=== PATIENT | female | born 1990 | race American Indian/Alaskan Native ===

== ENCOUNTER 2017-06-20 14:01 | Outpatient (CLI) | payer MEDICAID, OTHER ==
[2017-06-20 15:23] LABS: Basophils % (Auto) 0.2 % (0.0-1.8); Eosinophils % (Auto) 0.5 % (0.0-4.3); Hematocrit 28.9 % (30.3-42.9); Hemoglobin 9.3 gm/dl (10.1-14.3); Mean Corpuscular HGB Conc 32 % (30-34); Mean Corpuscular Volume 76 fl (79-97); Monocytes # (Auto) 0.7 K/mm3 (0.0-0.8); Monocytes % (Auto) 10.1 % (0.0-7.3); Platelet Count 184 K/mm3 (140-440); Red Blood Count 3.78 M/mm3 (3.65-5.03); Red Cell Distribution Width 16.7 % (13.2-15.2)
[2017-06-20 15:41] LABS: Alanine Aminotransferase 14 units/L (7-56); Albumin 3.2 g/dL (3.9-5); BUN/Creatinine Ratio 13; Blood Urea Nitrogen 4 mg/dL (7-17); Calcium 8.6 mg/dL (8.4-10.2); Hemolysis Index 1
[2017-06-20 15:46] LABS: Bilirubin,Direct < 0.2 mg/dL (0-0.2)
[2017-06-20] MEDS ORDERED: LACTATED RINGERS 500 ML IV ONE (15:49)
[2017-06-20 15:54] VITALS: BP 98/54
[2017-06-20 16:04] LABS: Mean Corpuscular Hemoglobin 25 pg (28-32)
[2017-06-20 16:50] LABS: Bilirubin,Urine NEG (Negative); Blood,Urine NEG (Negative); Color,Urine Yellow (Yellow); Mucus,Urine FEW /HPF; Protein,Urine <15 mg/dL mg/dL (Negative); RBC,Urine < 1.0 /HPF (0.0-6.0); Urobilinogen,Urine < 2.0 mg/dL (<2.0)
--- NOTE | 2017-06-20 17:21 | Event Note ---
Date: 06/20/17 (GD disease) Reviewed GB US results with . Reviewed diet and use of antacids. Pt and SO made aware of ultrasound results. GB disease in . Reviewed with pt diet and use of antacids. Surgical intervention after delivery if sx and pain can be managed for a few more weeks. Even possible IOL if indicated. Pt has a scheduled PN visit in the office. All questions answered. Pt d/c with instructions.
--- NOTE | 2017-06-21 00:19 | Ultrasound Report ---
FINAL REPORT PROCEDURE: US ABDOMEN LIMITED TECHNIQUE: Real-time sonography in multiple planes of the gallbladder fossa and CBD with imaging of the adjacent liver, pancreas, and right kidney was performed with image documentation. CPT 02283 HISTORY: IUP RUQ pain COMPARISON: None. FINDINGS: Liver: Normal size and echotexture with no evidence of cystic or solid mass lesion. Gallbladder: There sludge in the gallbladder. There are no stones. There is gallbladder wall thickening at 3.6 millimeters. There is no pericholecystic fluid.. Intrahepatic bile ducts: Normal . Extrahepatic bile ducts: Normal . Pancreas: Normal as visualized with suboptimal depiction of the pancreatic tail. Right kidney: Normal echotexture. No focal renal mass, calculus, or hydronephrosis. Other: No free fluid. IMPRESSION: There is mild gallbladder wall thickening which is nonspecific. There is gallbladder sludge. There is no definite evidence of acute cholecystitis. There are no gallstones. There is no biliary ductal dilatation.
== END 2017-06-20 17:33 | disposition home or self-care (01) ==
LOC: TRG 14:01 → LD 14:35 → TRG 17:33
PROVIDERS: ATTEND Obstetrics & Gynecology
DX: O99.613 Diseases of the digestive system complicating pregnancy, third trimester (principal); K82.9 Disease of gallbladder, unspecified; O47.03 False labor before 37 completed weeks of gestation, third trimester; Z3A.36 36 weeks gestation of pregnancy
CPT/HCPCS: 36415; 59025; 76705; 80053; 80074; 81001; 85025

== ENCOUNTER 2017-06-25 10:43 | Outpatient (CLI) | payer OTHER ==
[2017-06-25 10:56] VITALS: BP 106/57
--- NOTE | 2017-06-25 14:36 | Ultrasound Report ---
ULTRASOUND BIOPHYSICAL PROFILE: History: Decreased movement Technique: Transabdominal ultrasound with Doppler interrogation. 2 - breathing movements 2 - movements 2 - posture and tone 2 - Qualitative amniotic fluid volume 8 - TOTAL SCORE OF POSSIBLE 8 Heart Rate (bpm) 135
--- NOTE | 2017-06-25 14:36 | Ultrasound Report ---
ULTRASOUND OB LIMITED History: Decreased movement Technique: Transabdominal ultrasound with Doppler interrogation. Gestation: Single Position: Cephalic Amniotic Fluid: Normal TON = 16.6 cm Heart Rate: 135 BPM
== END 2017-06-25 12:35 | disposition home or self-care (01) ==
LOC: TRG 10:43
PROVIDERS: ATTEND Obstetrics & Gynecology
DX: O36.8130 Decreased fetal movements, third trimester, not applicable or unspecified (principal); O47.1 False labor at or after 37 completed weeks of gestation; Z3A.38 38 weeks gestation of pregnancy
CPT/HCPCS: 59025; 76815; 76819

== ENCOUNTER 2017-07-03 21:04 | Inpatient (IN) | payer OTHER ==
--- NOTE | 2017-07-03 21:56 | History and Physical Report ---
History of Present Illness Date of examination: 07/03/17 Date of admission: 07/03/17 Chief complaint: contractions, bloody discharge History of present illness: Pt presents c/o contractions and vaginal bloody discharge. + fm. cx 5/80/0 pt was seen in the office yesterday and cx was 3.5/60/-2 Menstrual History Menses every: 28 days Duration: 5 LMP: 09/2016 LMP reliability: month known LMP character: normal test type: urine test Date: 11/22/2016 BC at conception: none Planned ? no LMP: 08/14/2015 Past History : 5 Term Births: 3 Living Children: 3 Para: 3 Aborta: 1 Elect. Ab: 1 # 1 Delivery date: 2004 Weeks Gestation: 12 labor: no Delivery type: EAB Delivery location: [place] Comments: Hospitalized x 4 days # 2 Delivery date: 2005 Weeks Gestation: 38 Delivery type: Hours of labor: 4 Delivery location: [place] Sex: Male weight: 6#5oz Comments: no complications # 3 Delivery date: 2007 Weeks Gestation: 38 labor: no Delivery type: Hours of labor: 2 Anesthesia type: epidural Delivery location: [place] Sex: Male weight: 6#7oz Comments: no complications # 4 Delivery date: 08/16/2015 Weeks Gestation: 39 Delivery type: Vaginal Delivery location: [facility] weight: 7.75 Past Medical History Abnormal PAP: negative OSMAN Exposure: negative Infertility: negative Uterine Anomaly: negative Uterine Surgery (not C/S): negative Other Gynecologic Problems: negative Social Hx: Pt is no e/t/d occ etoh(social), + tobacco (hooka), no drugs Infection History Hx of STD: HPV Partner hx. of genital herpes: no Rash, Viral, or Febrile illness since last LMP? no Varicella/Chicken Pox Status: Previous Disease Genetic History Congenital Heart Defect: Mom: no Ene Disease: Mom: no Thalassemia Mom: no Neural Tube Defect Mom: no Down's Syndrome Mom: no Kurtis-Sachs Mom: no Sickle Cell Disease/Trait Mom: no Hemophilia Mom: no Muscular Dystrophy Mom: no Cystic Fibrosis Mom: no Baxter Chorea Mom: no Mental Retardation Mom: no Fragile X Mom: no Other Genetic/Chromosomal Disorder Mom: no Child w/other defect Mom: no Enviromental Exposures Xray Exposure: no Medication, drug, or alcohol use since LMP: no Chemical/Other Exposure: no Exposure to Cat Liter: no Hx of Parvovirus (Fifth Disease): no Active Medications (reviewed today): None Current Allergies (reviewed today): AMOXICILLIN (AMOXICILLIN TABS) (Critical) * PENICILLIN (Critical) * SULFUR (Critical) * VANCOMYCIN (Critical) Past History Past Medical History: no pertinent history Past Surgical History: no surgical history - Obstetrical History Expected Date of Delivery: 07/07/17 Actual Gestation: 39 Week(s) 3 Day(s) : 5 Para: 3 Number of Living Children: 3 Medications and Allergies Allergies Allergy/AdvReac Type Severity Reaction Status Date / Time amoxicillin Allergy Anaphylaxis Verified 08/16/15 08:16 Penicillins Allergy Anaphylaxis Verified 08/16/15 08:16 Sulfa (Sulfonamide Allergy Anaphylaxis Verified 08/16/15 08:16 Antibiotics) vancomycin Allergy Anaphylaxis Verified 08/16/15 08:16 Home Medications Medication Instructions Recorded Confirmed Last Taken Type Vit Calc,Iron,Folic 1 tab PO DAILY 08/16/15 06/25/17 2 Days Ago History [ Vitamins] ~06/23/17 Review of Systems All systems: negative - Vital Signs Vital signs: Vital Signs Pulse BP 100 H 103/59 07/03/17 21:22 07/03/17 21:22 Temp Pulse Resp BP Pulse Ox 97 H 103/59 100 07/03/17 21:55 07/03/17 21:22 07/03/17 21:55 - Physical Exam Cardiovascular: Normal S1, Normal S2 Lungs: Positive: Clear to auscultation, Normal air movement Abdomen: Positive: normal appearance, soft. Negative: distention, tenderness, guarding Genitourinary (Female): Positive: normal external genitalia, normal perenium. Negative: perineal/vulvar lesions Vagina: Positive: normal moisture - Obstetrical FHR: category 1 Cervical Dilatation: 5 Cervical Effacement Percentage: 80 station: 0 Uterine Contraction Pattern: Irregular Uterine Tone Measurement Phase: Resting Uterine Contraction Intensity: Moderate Results All other labs normal. Assessment and Plan - Patient Problems (1) 39 weeks gestation of Current Visit: Yes Status: Acute (2) Active labor at term Current Visit: No Status: Acute Plan to address problem: -admit -add pitocin if no cervical change -AROM if needed -anticpate
[2017-07-03] MEDS ORDERED: ePHEDrine SULFATE IV PRN (21:57)
[2017-07-03] MEDS ORDERED: ZOFRAN IV PRN (21:57)
[2017-07-03] MEDS ORDERED: MINERAL OIL PO PRN (21:57)
[2017-07-03] MEDS ORDERED: XYLOCAINE 2% INFILTRATI ONE (21:57)
[2017-07-03] MEDS ORDERED: BRETHINE SUB-Q PRN (21:57)
[2017-07-03] MEDS ORDERED: BRETHINE IVP PRN (21:57)
[2017-07-03] MEDS ORDERED: SUBLIMAZE IV PRN (21:57)
[2017-07-03] MEDS ORDERED: PITOCin/NS 30 UNIT/500ML 30 UNITS/500 ML BAG IV SCH ×2 (22:00)
[2017-07-03] MEDS: NORMOSOL-R PH 7.4 1,000 ML IV SCH ×3 (22:55→23:56)
[2017-07-03 22:58] LABS: Hematocrit 31.8 % (30.3-42.9); Hemoglobin 10.4 gm/dl (10.1-14.3); Mean Corpuscular HGB Conc 33 % (30-34); Mean Corpuscular Volume 74 fl (79-97); Platelet Count 231 K/mm3 (140-440); Red Blood Count 4.31 M/mm3 (3.65-5.03); Red Cell Distribution Width 17.4 % (13.2-15.2)
[2017-07-03 23:27] LABS: Mean Corpuscular Hemoglobin 24 pg (28-32)
[2017-07-04] MEDS ORDERED: NARCAN 2 MG/2 ML IV PRN (00:13)
--- NOTE | 2017-07-04 00:16 | Anesthesia Consultation ---
Anesthesia Consult and Med Hx Date of service: 07/04/17 - Airway Anesthetic Teeth Evaluation: Good ROM Head & Neck: Adequate Mental/Hyoid Distance: Adequate Intubation Access Assessment: Probably Good - Pre-Operative Health Status ASA Pre-Surgery Classification: ASA2, Emergency Proposed Anesthetic Plan: Epidural, Spinal - Pulmonary Hx Asthma: No COPD: No Hx Pneumonia: No - Cardiovascular System Hx Hypertension: No - Central Nervous System Hx Seizures: No Hx Psychiatric Problems: No - Endocrine Hx Renal Disease: No Hx End Stage Renal Disease: No Hx Hypothyroidism: No Hx Hyperthyroidism: No - Hematic Hx Anemia: Yes (2005) Hx Sickle Cell Disease: Yes - Other Systems Hx Alcohol Use: No
[2017-07-04] MEDS ORDERED: fentaNYL-BUPIV 2 MCG/ML-0.125% 200 MCG/100 ML BAG EPIDURAL SCH (01:00)
[2017-07-04] MEDS ORDERED: XYLOCAINE MPF 2% ONE (01:39)
[2017-07-04] MEDS ORDERED: METHERGINE IM ONE ×2 (03:09→05:06)
--- NOTE | 2017-07-04 03:22 | Procedure Note ---
OB Delivery Note - Delivery Date of Delivery: 07/04/17 Surgeon: CLIFFORD KOROMA Estimated blood loss: 200cc - Vaginal Delivery presentation: vertex Delivery position: OA Delivery induction: none Delivery augmentation: pitocin Delivery monitor: external FHT, external uterine Route of delivery: Delivery placenta: spontaneous Delivery cord: 3 umbilical vessels Episiotomy: none Delivery laceration: none Anesthesia: epidural Delivery comments: Delivery as above. No shoulder dystocia or nuchal cord noted. placed on maternal abdomen. Cord clamped times two and cut times one. Cord blood was not collected. Placenta delivered spontaneously intact. No lacerations noted. Maternal atony was noted and methergine times one was given IM. EBL 250-300ml. Mother and stable in LDR. - A at 1 minute: 8 at 5 minutes: 9 Gender: Female (8lbs 0oz)
[2017-07-04] MEDS: PITOCin/NS 20 UNIT/1000ML DRIP 20 UNITS/1,000 ML BAG IV SCH ×2 (03:41→05:08)
[2017-07-04] MEDS ORDERED: MILK OF MAGNESIA PO PRN (03:45)
[2017-07-04] MEDS ORDERED: DULCOLAX PR PRN (03:45)
[2017-07-04] MEDS ORDERED: LANSINOH TP PRN (03:45)
[2017-07-04] MEDS ORDERED: TYLENOL PO PRN (03:45)
[2017-07-04] MEDS ORDERED: PHENERGAN PO PRN (03:45)
[2017-07-04] MEDS ORDERED: BENADRYL PO PRN (03:45)
[2017-07-04] MEDS ORDERED: TUCKS PAD TP PRN (03:45)
[2017-07-04] MEDS ORDERED: PHENERGAN PR PRN (03:45)
[2017-07-04] MEDS ORDERED: SODIUM CHLORIDE FLUSH SYRINGE 10 ML IV NR (04:00)
[2017-07-04] MEDS: MOTRIN PO SCH ×4 (04:55→23:13)
[2017-07-04 20:11] LABS: Hemoglobin 9.9 gm/dl (10.1-14.3)
[2017-07-05] MEDS: MOTRIN PO SCH ×2 (05:22→13:00)
[2017-07-05] MEDS ORDERED: BOOSTRIX IM ONE (06:00)
--- NOTE | 2017-07-05 06:33 | Discharge Summary ---
Providers - Providers Date of Admission: 07/03/17 22:12 Date of discharge: 07/05/17 (pt desires d/c ) Attending physician: CLIFFORD KOROMA Primary care physician: CLIFFORD KOROMA Hospitalization Reason for admission: active labor Delivery: Episiotomy: none Laceration: none Incision: normal Other procedures: none complications: none Discharge diagnosis: IUP at term delivered [place] baby: female Hospital course: uncomplicated vaginal delivery pt w/o complaint VSS FF below umb Lochia small perineum intact H&H stable Asymptomatic anemia Doing well s/p vag delivery P: d/c today with instructions RTO 4 weeks PP care Condition at discharge: Good Disposition: DC-01 TO HOME OR SELFCARE - Discharge Diagnoses (1) Vaginal delivery Status: Acute Comment: RTO 4 weeks PP care Plan - Discharge Medications Prescriptions: Ibuprofen [Motrin 800 MG tab] 800 mg PO TID PRN #30 tablet PRN Reason: Pain - Provider Discharge Summary Activity: routine, no sex for 6 weeks, no heavy lifting 4 weeks, no strenuous exercise Diet: routine Instructions: routine Additional instructions: [] Smoking cessation referral if applicable(refer to patient education folder for contact #) [] Refer to [facility]'s [facility] Booklet Call your doctor immediately for: * Fever > 100.5 * Heavy vaginal bleeding ( >1 pad per hour) * Severe persistent headache * Shortness of breath * Reddened, hot, painful area to leg or breast * Drainage or odor from incision. * Keep incision clean and dry at all times and follow doctor's instructions regarding bathing/showering - Follow up plan Follow up: CLIFFODR KOROMA MD [Primary Care Provider] - 08/06/17 (Congratulations! Please call [phone] to schedule your exam in 4 weeks. Take medication as instructed. Call with concerns.)
[2017-07-05 12:35] VITALS: BP 109/67
== END 2017-07-05 13:33 | disposition home or self-care (01) | DRG 775 ==
LOC: TRG 21:04 → LD 21:17 → TRG 22:12 → LD 22:12 → OB 07-04 04:36
PROVIDERS: ADMIT Obstetrics & Gynecology; ATTEND Obstetrics & Gynecology
PROC: 10E0XZZ Delivery of Products of Conception, External Approach (ICD-10-PCS; principal; 2017-07-04)
PROC: 3E0R3BZ Introduction of Anesthetic Agent into Spinal Canal, Percutaneous Approach (ICD-10-PCS; 2017-07-04)
PROC: 00HU33Z Insertion of Infusion Device into Spinal Canal, Percutaneous Approach (ICD-10-PCS; 2017-07-04)
DX: O99.334 Smoking (tobacco) complicating childbirth (principal); Z3A.39 39 weeks gestation of pregnancy; Z37.0 Single live birth; O99.03 Anemia complicating the puerperium; D64.9 Anemia, unspecified; Z88.2 Allergy status to sulfonamides; Z88.1 Allergy status to other antibiotic agents; Z88.0 Allergy status to penicillin
CPT/HCPCS: 36415; 85014; 85018; 85027; 86592; 86850; 86900; 86901; 90471; 90715; 99211; G0463; J2210; J2590